=== PATIENT | male | born 1970 | race Caucasian/White ===

== ENCOUNTER → 2016-02-21 | Outpatient (CLI) | payer BC ==
[~2016-02-21] MED LIST: FURO-85 PO; NAPR1TAB9 PO; TRAM-10 PO
== END | disposition home or self-care (01) ==
LOC: C.PATH 08:51
PROVIDERS: ATTEND Physical Medicine & Rehabilitation Sports Medicine
DX: R22.32 Localized swelling, mass and lump, left upper limb (principal)

== ENCOUNTER → 2016-03-20 | Day surgery (SDC) | payer BC ==
[2016-03-12 12:20] VITALS: Ht 195.6 cm; Wt 192.1 kg
--- NOTE | 2016-03-12 12:54 | PAT Medication Instructions ---
Service Date Mar 12, 2016. Current Home Medication List Furosemide (Lasix), 20 MG PO PRN Naproxen (Aleve), 220 MG PO PRN Medication Instructions For Your Scheduled Surgery Naproxen (Aleve), 220 MG PO PRN (not taking currently) - Hold the following medications the morning of surgery: Furosemide (Lasix), 20 MG PO PRN If you have any questions please call us at [phone] or [phone] ( Christiane) or [phone]
[2016-03-12 13:28] LABS: BASO ABS # 0.06 K/uL (0-0.2); COMPLETE YES; EOS % 2.8 %; IG% 0.2 %; LYMPH % 31.4 %; LYMPH ABS # 1.88 K/uL (1.2-3.4); MEAN CELL VOLUME 85.7 fL (80-100); MEAN CORPUSCULAR HEMOGLOBIN 29.1 pg (25-34); MEAN PLATELET VOLUME 9.7 fL (7.4-10.4); MONO % 7.2 %; NEUT % 57.4 %; PLATELET COUNT 221 K/uL (130-400); RED BLOOD COUNT 5.25 M/uL (4.7-6.1); WHITE BLOOD COUNT 5.99 K/uL (4.8-10.8)
[2016-03-12 13:38] LABS: PROTHROMBIN TIME (PATIENT) 10.8 SECONDS (9.0-12.0)
[2016-03-12 14:05] LABS: BUN/CREATININE RATIO 12.2 (10-20); CALCIUM 8.8 mg/dl (8.5-10.1); CREATININE 1.1 mg/dl (0.60-1.40); POTASSIUM 4.3 mmol/L (3.5-5.1)
[~2016-03-20] VITALS: Ht 195.6 cm; Wt 192.1 kg
[~2016-03-20] MED LIST changes: +ATROPINE SULFATE 0.1 MG/ML 5ML SYR IV PRN; +BUPIVACAINE/EPINEPHRINE 0.5% MPF 1:200,000 30 ML VIAL ONE; +CEFAZOLIN 3000 MG/65 ML D5W IV SCH; +DEXAMETHASONE SOD INJ 4 MG/ML VIAL ONE; +EpHEDrine SULFATE INJ 50 MG/ML AMP IV PRN; +FENTANYL CITRATE INJ 50 MCG/1 ML 2 ML VIAL ONE; +LACTATED RINGER'S 1000ML 1,000 ML IV SCH; +LIDOCAINE HCL 2% 2 ML VIAL (20MG/ML) ONE; +LIDOCAINE/EPINEPHRINE 1% INJ 50 ML VIAL ONE; +MIDAZOLAM HCL 1 MG/ML 2ML VIAL ONE; +MoRPHine SULFATE 2 MG/ML CARP IV PRN; +MoRPHine SULFATE 4 MG/ML 1 ML CARP\\VIAL IV PRN; +ONDANSETRON INJ 2 MG/ML 2 ML VIAL IV PRN; +ONDANSETRON INJ 2 MG/ML 2 ML VIAL ONE; +PROPOFOL IV EMULSION 10 MG/ML 20 ML VIAL IV ONE; +SODIUM CHLORIDE 0.9% 1000ML 1,000 ML IV SCH; +TRAMADOL HCL 50 MG TAB PO PRN
--- NOTE | 2016-03-20 08:22 | History & Physical Bridge Note ---
H&P Re-Evaluation Bridge Note: I have examined the patient, reviewed the History & Physical and in the interval since the performance of the History & Physical I have noted the following changes of clinical significance: No changes noted
[2016-03-20 10:28] VITALS: TEMP 36.3
--- NOTE | 2016-03-20 10:38 | Discharge Instructions-SurgCtr ---
Discharge Instructions Visit Reason for Visit: Left Thumb Mass Discharge Discharge Diagnosis / Problem: Left thumb mass excision Discharge Goals Goal(s): Decrease discomfort, Improve function, Increase independence Medications Stopped Medications Name(s): NO recent blood thinners Activity Recommendations Activity Limitations: per Instructions/Follow-up section Anesthesia . Post Anesthesia Instructions: If you have had General Anesthesia or IV Sedation: * Do not drive today. * Resume driving when surgeon permits. * Do not make important decisions or sign legal documents today. * Call surgeon for: 1. Temperature elevations greater than 101 degrees F. 2. Uncontrollable pain. 3. Excessive bleeding. 4. Persistent nausea and vomiting. 5. Medication intolerance (nausea, vomiting or rash). * For nausea and vomiting use only clear liquids such as: tea, soda, bouillon until nausea subsides, then gradually increase diet as tolerated. * If you have any concerns or questions, call your surgeon's office. If physician is unavailable and it is an emergency, call 911 or go to the nearest emergency room. . Instructions / Follow-Up Instructions / Follow-Up The following are instructions to follow after minor hand surgery. ACTIVITY RECOMMENDATIONS: * Minimize activity until your first visit after surgery. * No excessive walking, jogging, sports or laboring. * Return to activity is individualized. Most patients are able to return to everyday activities within 2 weeks. * Return to sports or intensive labor usually occurs at 1-2 months. * DRIVING: Driving may be resumed when you feel you have adequate pain control and use of the hand. * BATHING: You may shower or sponge-bathe immediately after surgery. The dressing will need to be covered with a plastic bag or plastic wrap until the dressing is changed on the fourth or fifth day after surgery. Once the dressing has been changed on the fourth or fifth day after surgery, you may shower and get the incision wet. * Wash with regular soap and water. * Do not bathe (submerge the incision), soak, swim or use a hot tub until the incision is completely healed over with normal skin and the doctor has given the OK to proceed. * There is no need to apply any ointments, powders or salves to your incision. * Do not apply alcohol or hydrogen peroxide directly to the incision. Diluted peroxide (50:50 mixture with sterile saline) may be used to clean dried blood from around the incision area. WORK/SCHOOL: * You may return to sedentary work or school when you are feeling comfortable. This is usually 3-7 days after surgery. * Expect increased discomfort with increased activity. Continue to elevate and ice the hand as much as possible. DIET: * Resume previous diet. MEDICATIONS: * You will have a prescription for pain medication and an anti-inflammatory medication after surgery. Use the pain pills for severe pain and the anti-inflammatory for less severe pain. * Once the pain pills have run out, try to use the anti-inflammatory. If this is not effective then contact the office for assistance. * The pain medication may cause nausea, constipation and sleepiness. You should see how they affect you before driving or similar activity. * The anti-inflammatory may cause stomach upset and bleeding. If this occurs, let your doctor know immediately . * Some patients may need blood clot prevention. This can be done with either a pill or a simple shot. Your doctor will advise you on when to begin these medications and how to take them. * Do not take aspirin or other anti-inflammatory products (i.e. Advil or Aleve ) if taking blood thinner medication. * Take a stool softener like Colace or a stimulant like Senokot to prevent constipation. SPECIAL CARE INSTRUCTIONS: ICE: * Do not apply ice directly to the skin. * Use a thin dressing or stockinet between the skin and ice bag. The dressing in place after surgery will suffice. * Apply ice for 20-30 minutes and repeat every 2-4 hours. This is especially important for the first 3-7 days after surgery. * Once the pain improves, use ice as needed. ELEVATION: * Keep your hand elevated at or above the level of your heart as much as possible. * Expect some increased discomfort and swelling if you allow your hand to hang down for any length of time. DRESSING: * Your dressing will be changed 4-5 days after surgery by the physical therapist or physician's construction management assistant. Leave your dressing intact until this time. * You may then change your dressing daily with clean dry gauze or Band-aids and a soft wrap or stockinet. * Always wash your hands prior to touching the incision area. * Once the stitches are removed, you may leave the wound open to air or cover with a thin bandage. * There is no need to apply any ointments, powders or salves to your incision. * Expect some bloody drainage for the first few days after surgery. * Leave the tape strips in place (if present) for 5-7 days. * The initial dressing after surgery may become soaked with blood or fluid which is normal. You may reinforce your dressing with clean, dry gauze as needed. BRACE: * Bracing is generally not needed after routine hand surgery. THERAPY: * Physical therapy may be prescribed after your surgery. * For carpal tunnel and trigger digit surgery you may begin moving your fingers and wrist immediately after surgery as tolerated. * Be careful to not overuse. * Once the sutures are removed, further range of motion exercises can be performed. * Hand incisions may be very sensitive for a few months after surgery so avoid excessive pressure on the incision. If necessary, use a padded weightlifters' glove. * You may massage the incision with skin cream to make it less sensitive and reduce scarring. * Hand strength usually returns with normal use. * If needed, squeezing a soft sponge or Play-dough may help. * Your doctor will recommend physical therapy if necessary. PROBLEMS/QUESTIONS: * If you have any problems such as severe pain, numbness, tingling or high fevers or if you have any questions, please contact the office at [phone]. * It is not uncommon to have some numbness and tingling after the surgery especially if you have had a nerve block done. This should gradually improve over the first 1- 2 days. If this persists longer or worsens then contact the office. FOLLOW UP VISIT: * If not already scheduled, please call the office at to schedule follow-up appointments for approximately 10 days, 6 weeks and 3 months after surgery. * Follow up with Dr. Kelly on 04/04/16 at 10.15 am. Procedures Procedures Performed: Left Thumb Excisional Biopsy Pending Studies Studies pending at discharge: no Medical Emergencies . Who to Call and When: Medical Emergencies: If at any time you feel your situation is an emergency, please call 911 immediately. . Non-Emergent Contact Non-Emergency issues call your: Surgeon Call Non-Emergent contact if: you have a fever, your pain is not controlled, wound has increased drainage . . "Provider Documentation" section prepared by Ahmet Hernández.
--- NOTE | 2016-03-20 10:43 | [facility] Post Operative Brief Note ---
Immediate Operative Summary Operative Date Mar 20, 2016. Pre-Operative Diagnosis Left Thumb Mass Post-Operative Diagnosis same Procedure(s) Performed Left Thumb Excisional Biopsy Surgeon Dr. Sowmya Kelly Railroad Watchman Surgeon(s) Dr. Anibal Gil Estimated Blood Loss minimal Specimens A. Left Hand 1st Web Space Mass Complication(s) None Disposition PCU
[2016-03-20 11:04] VITALS: BP 152/92; PULSE 66; O2SAT 98
--- NOTE | 2016-03-20 11:15 | OPERATIVE REPORT ---
DATE OF OPERATION: 03/20/2016 PREOPERATIVE DIAGNOSIS: Left thumb mass. POSTOPERATIVE DIAGNOSIS: Same. PROCEDURE: Excisional biopsy of left thumb mass. SURGEON: Dr. Kelly. QUALITY ASSURANCE COACH: Dr. Zhu, fellow. No PA available. ANESTHESIA: Local with IV sedation. INDICATIONS FOR PROCEDURE: The patient is a 45-year-old male with a left thumb mass that has been present for many years, fluctuating in size, slowly enlarging. X-rays show soft tissue mass without calcification. MRI is indeterminate. 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 Needle biopsy indicated. No evidence of malignancy and was nondiagnostic. The lesion is well circumscribed and is located in the first webspace, just ulnar to the metacarpophalangeal joint of the thumb. Options, risks and benefits were discussed. The patient elected to proceed with surgery. PROCEDURE IN DETAIL: Informed consent was obtained. The patient identified as Gee Renae. He identified the operative site as the left hand. I marked it with my initials. A preop surgical time out was performed. A preop dose of IV antibiotics was given. He was taken to the operating room, positioned supine on the hospital stretcher. The arm was placed on left hand table. A tourniquet was applied to the left forearm. The left upper extremity was prepped and draped in the usual sterile fashion. DVT prophylaxis was not indicated. The limb was exsanguinated with gravity and the tourniquet inflated to 225 mmHg. Prior to start of the procedure, a wrist block was performed with approximately 10 mL of a 50:50 mixture of 1% lidocaine and 0.5% Marcaine, both with epinephrine. A block of the superficial radial nerve, the palmar cutaneous branch of the median nerve and the median nerve itself was performed. This was supplemented by some topical local in the wound. No injection was performed in the surgical site. The examination showed that there was a 1.5 cm firm lesion located just to the ulnar side of the MP joint of the thumb. This appeared to be more on the dorsal surface versus the palmar surface. After exsanguinating the limb with gravity and inflating the tourniquet, the lesion seemed to decrease in size. A longitudinal incision 2 cm in length was made centered over the lesion stopping short of the webspace. Blunt dissection was performed down through the subcutaneous tissues directly onto the lesion. The lesion was noted to be well encapsulated and noninfiltrative. The lesion was then dissected out with a combination of sharp and blunt dissection. It shelled out very nicely from the surrounding tissues. An area deep and ulnar and distal and radial were noted where there appeared to be something coursing into and out of the lesion. Vessel loops were then applied. The lesion itself had a whitish color to it with some occasional areas of purple discoloration. It was smooth and firm and noninfiltrative. The 2 structures on either end were identified. This could have been a nerve or blood vessel. I then carefully dissected these structures away from the lesion. They appeared to separate readily from the lesion and at the very distal extent there was some fibrous tissue present. There was no round tubular structure like a nerve or artery or vein. This was what looked like some flat fascial tissue which was divided. The lesion was then sent for specimen. Distally it coursed along the ulnar border of the thumb, but the other end of the structure was coming more directly from the second metacarpophalangeal joint rather than from the region of where the proper digital nerve and artery to the ulnar side of the thumb comes from. The tourniquet was let down after 30 minutes of inflation. Pressure was applied. I did topically apply some 1% lidocaine with epinephrine for hemostasis. There was no significant bleeding. The remaining structure that was dissected off of the lesion was pulsatile. There was a small area of bleeding associated with this which was controlled with pressure. Pressure was held for several minutes and after about 5 minutes of observing there was no notable bleeding at all. I explored the rest of the lesion, palpated and found that there were no accessory masses. The structure of what was left was as discussed previously in terms of its orientation. The skin was then closed with very small bites of 4-0 nylon suture. A soft sterile dressing was applied with some compression over the webspace. Prior to the conclusion of the procedure, capillary refill was noted to be less than 2 seconds in the digit. The patient had intact sensation on the ulnar, palmar, dorsal and radial side of the thumb. The thumb was warm with good capillary refill less than 2 seconds. A soft sterile dressing was applied. The patient awakened from anesthesia without difficulty and taken to the recovery room in stable condition. There were no complications. The resected lesion was sent for specimen. Based upon the findings, I did not think that a culture was indicated. Counts were correct at the end of case. Blood loss was minimal. At the conclusion of the operation, I spoke to patient's mother and informed her of my findings. Postoperative instructions were given. Will followup on the pathology. I attest to the content of the Intraoperative Record and any orders documented therein. Any exceptio ns are noted below.
--- NOTE | 2016-03-20 11:23 | Anesthesia Progress Nt - [facility] ---
Anesthesia Post Op Note Date & Time Mar 20, 2016 at 11:23 Vital Signs Pain Intensity: 0 Vital Signs Past 12 Hours Date Time Temp Pulse Resp B/P Pulse Ox O2 Delivery O2 Flow Rate FiO2 03/20/16 11:04 66 18 152/92 98 Room Air 03/20/16 10:28 36.3 57 20 136/77 96 Room Air 03/20/16 08:21 37.1 68 16 130/88 96 Room Air Notes Mental Status: alert / awake / arousable, participated in evaluation Pt Amnestic to Procedure: Yes Nausea / Vomiting: adequately controlled Pain: adequately controlled Airway Patency, RR, SpO2: stable & adequate BP & HR: stable & adequate Hydration State: stable & adequate Anesthetic Complications: no major complications apparent
== END | disposition home or self-care (01) ==
LOC: X.SURG 08:03
PROVIDERS: ATTEND Physical Medicine & Rehabilitation Sports Medicine
DX: D21.12 Benign neoplasm of connective and other soft tissue of left upper limb, including shoulder (principal); E66.9 Obesity, unspecified; Z98.890 Other specified postprocedural states; Z68.43 Body mass index [BMI] 50.0-59.9, adult; Z88.5 Allergy status to narcotic agent